=== PATIENT | male | born 1960 | race Caucasian/White ===

== ENCOUNTER → 2016-05-28 | Outpatient (CLI) | payer BC ==
[~2016-05-28] MED LIST: BAYER CHEWABLE81 MG PO; BENZONATATE200 M1 PO; BRILINTA90 MG PO; CARVEDILOL3.125 MG PO; CLARITIN10 M3 PO; LIPITOR40 MG PO; LOSARTAN POTASS25 MG PO; NITROGLYGERIN0.4 MG SL
--- NOTE | ~2016-05-28 | CT57 ---
[facility] A Service of [facility] RADIOLOGY TEXT RESULTS PATIENT: MUNA ORO LOCATION: [facility] : 58 UNIT #: [id number] AGE: [address]: Osmani Carlton MD SEX: M ORDER DR: [id number] [facility] [address] [place], [place] [address] [id number] O MR#: [id number] [facility] #: [id number] NAME: MUNA ORO : 1960 SEX: M STUDY DATE/TIME: 05/28/2016 13:25 UNIT: [facility] ROOM: STUDY DESCRIPTION: CT Chest Wo Cont Attending Physician: Osmani Carlton M.D. Referring Physician: Osmani Carlton M.D. Ordering Physician: Osmani Carlton M.D. Primary Care Physician: Maria Elena Sol M.D. MEDICAL IMAGING REPORT This report is preliminary unless electronic signature is present EXAM Chest CT, no contrast, 05/28/2016. 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 No history of malignancy. 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 Observation for suspected malignant neoplasm. Noncalcified nodules in the right lung for which followup was recommended on the prior November. TECHNIQUE Noncontrast chest CT was performed. This CT exam was performed with one or more of the following radiation dose reduction techniques: automatic exposure control, adjustment of mA and/or kV according to patient size, and iterative reconstruction. COMPARISON 11/18/[address] CHEST: There are multiple noncalcified pulmonary nodules. When compared to the prior November 2015, they are unchanged. As noted on the prior study, many of these nodules have been stable for several years while at least 2 nodules in the right lung require interval followup until November 2016 to confirm 2 years of stability. Suggest a repeat CT chest in November 2016 to confirm stability on imaging for 2 years. No distinct new pulmonary nodules identified. The pulmonary nodules bilaterally measure on the order of 5-6 mm or less. There is incidental mild gynecomastia. Included thyroid is unremarkable. [facility] A Service of [facility] RADIOLOGY TEXT RESULTS PATIENT: MUNA ORO LOCATION: [facility] : 58 UNIT #: [id number] AGE: [address]: Osmani Carlton MD SEX: M ORDER DR: No pericardial effusion. No axillary adenopathy or mediastinal adenopathy. Aorta demonstrates no aneurysm. Coronary artery calcifications/stent present. Included upper abdomen demonstrates a nonobstructing 3 mm stone in the left kidney. Osseous structures demonstrate no suspicious bone lesion. Postop changes of right thoracotomy appear stable. IMPRESSION 1. Stable appearance of noncalcified subcentimeter pulmonary nodules bilaterally. Repeat CT chest in November 2016 recommended to confirm 2 years of stability for the nodules as described above. No new nodules identified. 2. Postop changes of right thoracotomy procedure appears stable. 3. Nonobstructing left renal stone. Dictated by... Sebastián Fierro M.D. THIS IS AN ELECTRONICALLY VERIFIED REPORT Sebastián Fierro M.D. at 05/29/2016 4:49 PM ROSHNI/alanna TD: 05/29/2016 10:11 JOB #: [id number] MEDICAL IMAGING REPORT Page 1 of 1 COPY
== END | disposition home or self-care (01) ==
LOC: CCAT 12:32
DX: Z08 Encounter for follow-up examination after completed treatment for malignant neoplasm (principal); R91.8 Other nonspecific abnormal finding of lung field; N20.0 Calculus of kidney; Z85.89 Personal history of malignant neoplasm of other organs and systems; Z98.890 Other specified postprocedural states
CPT/HCPCS: 71250